=== PATIENT | female | born 1970 | race Caucasian/White ===

== ENCOUNTER 2022-05-06 08:30 | Day surgery (SDC) | payer BC, MEDICARE ==
[~2022-05-06] VITALS: Ht 167.6 cm; Wt 81.7 kg
[2022-05-06] VITALS (24 sets, daily range): BP systolic 91–142; BP diastolic 52–78
[2022-05-06] MEDS ORDERED: MIDAZolam 1mg/ml 10ml vial IV ONE (08:45)
[2022-05-06] MEDS ORDERED: albumin 25% 100mL bottle x 1 IV PRN (08:45)
[2022-05-06] MEDS ORDERED: sodium chloride 0.45% 1,000 ML IV SCH (09:15)
[2022-05-06 09:25] LABS: BASOPHILS % (AUTO) 0.9 % (0-1); EOSINOPHILS # (AUTO) 0.3 X10'3 (0-0.9); EOSINOPHILS % (AUTO) 7.1 % (0-6); HEMATOCRIT 41.6 % (35.0-45.0); HEMOGLOBIN 14.6 g/dl (12.0-16.0); LYMPHOCYTES # (AUTO) 1.8 X10'3 (1.1-4.8); LYMPHOCYTES % (AUTO) 43.1 % (21-51); MEAN CORPUSCULAR HEMOGLOBIN 31.8 PG (27.0-31.0); MEAN CORPUSCULAR HGB CONC 35.2 g/dL (33.0-36.5); MEAN CORPUSCULAR VOLUME 90.6 FL (78-98); MEAN PLATELET VOLUME 7.3 FL (7.4-10.4); MONOCYTES # (AUTO) 0.4 X10'3 (0-0.9); MONOCYTES % (AUTO) 9.4 % (2-12); NEUTROPHILS # (AUTO) 1.7 X10'3 (1.8-7.7); NEUTROPHILS % (AUTO) 39.5 % (42-75); PLATELET COUNT 178 X10'3 (140-440); WHITE BLOOD COUNT 4.2 X10'3 (4.5-11.0)
[2022-05-06] MEDS ORDERED: midazolam 1 mg/ML 2ml injection ONE (09:50)
[2022-05-06] MEDS ORDERED: fentaNYL/PF 50MCG/1 ML 2ML syringe ONE (09:50)
[2022-05-06] MEDS ORDERED: DULO60CA65 PO (10:22)
[2022-05-06] MEDS ORDERED: MULT-1085 PO (10:22)
[2022-05-06] MEDS ORDERED: LEVO15TA6 PO (10:22)
[2022-05-06] MEDS ORDERED: HYDR-3973 PO (10:22)
[2022-05-06] MEDS ORDERED: LORA-269 PO (10:22)
[2022-05-06] MEDS ORDERED: ONDA8TAB13 PO (10:22)
[2022-05-06] MEDS ORDERED: FERR236T3 PO (10:22)
[2022-05-06] MEDS ORDERED: GABA-530 PO (10:22)
[2022-05-06] MEDS ORDERED: ASCO100T12 PO (10:22)
[2022-05-06] MEDS ORDERED: TURKEY TAIL PO (10:22)
[2022-05-06] MEDS ORDERED: ERGO500056 PO (10:22)
[2022-05-06] MEDS ORDERED: LEVO100T9 PO (10:22)
[2022-05-06] MEDS ORDERED: CLON1TAB13 PO (10:22)
[2022-05-06] MEDS ORDERED: IBUP-1984 PO (10:22)
== END 2022-05-06 14:45 | disposition home or self-care (01) ==
LOC: SSTAY O 08:30
PROVIDERS: ATTEND Radiology Diagnostic Radiology
DX: R91.8 Other nonspecific abnormal finding of lung field (principal); J98.4 Other disorders of lung; E03.9 Hypothyroidism, unspecified; F41.9 Anxiety disorder, unspecified; F32.A Depression, unspecified; F11.20 Opioid dependence, uncomplicated; Z85.3 Personal history of malignant neoplasm of breast; Z87.442 Personal history of urinary calculi; Z90.13 Acquired absence of bilateral breasts and nipples; Z90.710 Acquired absence of both cervix and uterus; Z98.890 Other specified postprocedural states; Z90.722 Acquired absence of ovaries, bilateral; Z98.82 Breast implant status
CPT/HCPCS: 32408; 36415; 71045; 85025; 85610; 99152; 99153; J2250; J3010; J7030; 77012; A4421; A4615; A6258